=== PATIENT | male | born 1935 | race Caucasian/White ===

== ENCOUNTER 2017-01-19 10:23 | Observation (INO) | payer OTHER ==
[2017-01-19] MEDS ORDERED: BUPIVACAINE 0.5% 30 ML SDV ONE (10:26)
[2017-01-19] MEDS ORDERED: LIDOCAINE 1% 300 MG/30 ML SDV ONE (10:27)
[2017-01-19] MEDS ORDERED: LR 1,000 ML IV ONE (10:38)
[2017-01-19] MEDS ORDERED: LIDOCAINE 1% 5 ML SDV ID PRN (10:38)
[2017-01-19] MEDS ORDERED: ceFAZolin 2 GM/DEXTROSE 100 ML IV ONE (11:00)
[2017-01-19] MEDS ORDERED: fentaNYL 100 MCG/2 ML INJ ONE ×2 (11:25→11:26)
[2017-01-19] MEDS ORDERED: MIDAZOLAM 2 MG/2 ML VIAL ONE (11:38)
[2017-01-19] MEDS ORDERED: DEXAMETHASONE 4 MG/ML VIAL ONE (11:53)
[2017-01-19] MEDS ORDERED: ONDANSETRON 4 MG/2 ML VIAL ONE (11:53)
[2017-01-19] MEDS ORDERED: LIDOCAINE 2% 5 ML SDV ONE (11:54)
[2017-01-19] MEDS ORDERED: RANITIDINE 50 MG/2 ML VIAL ONE (11:54)
[2017-01-19] MEDS ORDERED: epHEDrine SULFATE 10 MG/ML SYR ONE (12:17)
[2017-01-19] MEDS ORDERED: KETOROLAC 30 MG/1 ML SDV ONE (12:38)
[2017-01-19] MEDS ORDERED: OXYCODONE/APAP 5/325 TAB PO PRN (13:37)
[2017-01-19] MEDS ORDERED: ONDANSETRON 4 MG/2 ML VIAL IVP PRN (13:37)
--- NOTE | 2017-01-19 13:47 | POSTOPPROG ---
Post Op Note Date of Operation: 01/19/17 Surgeon: Saman Wolfe (, FACS) Anesthesiologist: Mychal Anesthesia: LMA Pre-op Diagnosis: bilateral recurrent inguinal hernias Procedure: bilateral open inguinal hernia repair Findings: indirect left and direct right inguinal hernia Inf/Abcess present in the surg proc area at time of surgery?: No Complications: none
[2017-01-19] MEDS ORDERED: LR 1,000 ML IV SCH (14:00)
--- NOTE | 2017-01-19 15:05 | GOP ---
[f rep st] OPERATIVE REPORT DATE OF OPERATION: SURGEON: Saman Wolfe MD ANESTHESIA: Laryngeal mask anesthesia. ANESTHESIOLOGIST: Jeffy Horta D.O. PREOPERATIVE DIAGNOSIS: Bilateral recurrent inguinal hernias. POSTOPERATIVE DIAGNOSIS: Bilateral recurrent inguinal hernias. PROCEDURE PERFORMED: Open repair of bilateral recurrent inguinal hernias. FINDINGS: Left indirect inguinal hernia and direct right inguinal hernia, both previously repaired at the time of prostatectomy in 2001. ESTIMATED BLOOD LOSS: 10 cc. DESCRIPTION OF PROCEDURE: After informed consent was obtained, the patient was brought to the opera ting room and placed under general anesthesia. The lower abdomen was clipped, prepped, and draped i n the usual fashion. Before proceeding, a time-out and identification of the patient was performed. 0.25% Marcaine was used to infiltrate the abdominal wall, slightly medial and inferior to the anteri or superior iliac crest, at the level of the external oblique fascia. The planned incision site was infiltrated, and incised obliquely over the inguinal canal, and carried through the skin and subcut aneous tissues, Abbi fascia. The external oblique fascia was liberally infiltrated with 0.25% Mar davidson, and incised in the direction of its fibers through the external ring. The hernia on the left side was protruding through the internal ring, and the cord structures were mobilized from the ingu inal floor and encircled with a Chelsi drain. The hernia sac was dissected away from the cord stru ctures, and reduced into the preperitoneal space. The internal ring was reapproximated with interru pted 3-0 Vicryl sutures. Subsequently, the inguinal floor was reinforced with polypropylene mesh. U sing a standard Dougie technique. The mesh was cut to shape, secured medially at the pubic tu bercle, and interrupted sutures placed, securing it laterally to the internal ring. Here, it was sp lit in a keyhole fashion around the cord. It was attached to itself and the inguinal ligament with interrupted 0 Nurolon sutures. Sutures were placed laterally, as well, between the mesh and the ing uinal ligament. Medially and superiorly, the mesh was secured to the internal oblique fascia with i nterrupted 0 Nurolon sutures, taking care to avoid the ilioinguinal nerve and its branches cephalad. The tail of the mesh was tucked between the external oblique and internal oblique muscles. Cord s tructures were returned to their anatomic position. Upon completion, the repair was intact without undue tension. The external oblique fascia was closed over the external oblique with continuous run judah 3-0 Vicryl suture. Subcutaneous tissues were closed with 4-0 Vicryl suture, and the skin was c losed with 4-0 Monocryl suture in a subcuticular fashion. The right inguinal hernia was repaired through a mirror-image incision, after infiltrating the abdom inal wall with 0.25% Marcaine. The incision was made obliquely over the inguinal canal, and carried through the skin, subcutaneous tissues, Abbi fascia. External oblique fascia was infiltrated wit h 0.25% Marcaine, and opened in the direction of its fibers through the external ring sharply. Agai n, the cord structures were mobilized from the inguinal floor and encircled with Chelsi drain. The patient had an obvious direct inguinal hernia on the right side, and this was reduced into the prep eritoneal space, and the transversalis fascia repaired with interrupted 3-0 Vicryl sutures. There w as no indirect hernia sac on the right side. A Dougie repair was then performed on the right, with a polypropylene mesh cut to appropriate shape, sutured to the inguinal ligament starting at th e pubic tubercle medially, and extending to the internal ring laterally. Here, the mesh was again s plit longitudinally around the cord structures, secured to itself and the inguinal ligament with int errupted 0 Nurolon sutures. Medially and superiorly, the mesh was secured to the internal oblique f ascia with interrupted 0 Nurolon sutures. Laterally, the tail of the mesh was tucked between the ex ternal oblique and internal oblique muscles. Upon completion, the repair was intact without undue t ension. The cord structures were returned to their anatomic position, and the external oblique fasc ia was closed with continuous running 3-0 Vicryl suture. Subcutaneous tissues were closed with 4-0 Vicryl suture, and the skin closed with 4-0 Monocryl suture in subcuticular fashion. Mastisol and S arti-Strips were applied. Needle, sponge, and instrument count correct. COMPLICATIONS: None. Copy requested to: Elinor Bennett MD /[id number]/MODL
[2017-01-19 19:53] VITALS: RESP 14
[2017-01-20 05:26] VITALS: O2SAT 98
[2017-01-20 07:39] VITALS: BP 156/66; PULSE 47; TEMP 97.8
--- NOTE | 2017-01-20 08:49 | PDDCSUM ---
Discharge Summary Discharge Summary: Mr Norton was admitted for elective repair of bilateral recurrent inguinal hernias under GA. He had borderline control of his blood pressure pre-op and I admitted him for observation to monitor his BP post op. His BP the day before surgery was 220/100 and Amlodipine 5mg po q day was started by Cardiology (Oliver Moncada PA-C) in addition to his Losartan 100mg po q day. Following surgery his BP remained in the 130-150/70-80 range. He had mild discomfort and his surgical sites were uncomplicated other than a small amount of oozing from the skin incisions. He was continued on ASA 325mg/day, which was held for only 5 days preop. Plavix had been discontinued by Dr. Montgomery several weeks before. He was instructed in activity, wound care and diet. FU arranged in my office January 25. He has Rx for Percocet at home please see DC medication list for details of medications at discharge, they have been fully reconciled. Awilda Wolfe MD, FACS
[2017-01-20] MEDS ORDERED: ATORVASTATIN CALCIUM 40 MG TAB PO SCH (09:00)
[2017-01-20] MEDS ORDERED: LOSARTAN POTASSIUM 50 MG TAB PO SCH (09:00)
[2017-01-20] MEDS ORDERED: PANTOPRAZOLE SODIUM 40 MG TAB PO SCH (09:00)
[2017-01-20] MEDS ORDERED: amLODIPine BESYLATE 5 MG TAB PO SCH (09:00)
[2017-01-20] MEDS ORDERED: ASPIRIN 325 MG TAB PO SCH (09:00)
[2017-01-20] MEDS ORDERED: NON-FORMULARY NEW DRUG (Atorvastatin Calcium [Lipitor 80 Mg] 80 MG) PO SCH ×2 (09:00)
[2017-01-20] MEDS ORDERED: NON-FORMULARY NEW DRUG (Losartan Potassium [Cozaar] 100 MG) PO SCH (09:00)
[2017-01-20] MEDS ORDERED: NON-FORMULARY NEW DRUG (Lansoprazole [Prevacid] 15 MG) PO SCH (09:00)
== END 2017-01-20 09:10 | disposition home or self-care (01) ==
LOC: FSGY 10:23 → F3E 13:35
PROVIDERS: ADMIT Surgery; ATTEND Surgery
PROC: 0YUA0JZ Supplement Bilateral Inguinal Region with Synthetic Substitute, Open Approach (ICD-10-PCS; principal; 2017-01-19 11:45)
DX: K40.21 Bilateral inguinal hernia, without obstruction or gangrene, recurrent (principal); I10 Essential (primary) hypertension; R00.1 Bradycardia, unspecified; E78.5 Hyperlipidemia, unspecified; I25.10 Atherosclerotic heart disease of native coronary artery without angina pectoris; K44.9 Diaphragmatic hernia without obstruction or gangrene; Z79.82 Long term (current) use of aspirin; Z87.891 Personal history of nicotine dependence; Z87.442 Personal history of urinary calculi; Z85.46 Personal history of malignant neoplasm of prostate; Z82.49 Family history of ischemic heart disease and other diseases of the circulatory system
CPT/HCPCS: 49520; C1781; J0690; J1100; J1885; J2250; J2405; J2780; J3010

== ENCOUNTER → 2017-10-29 | Outpatient (CLI) | payer OTHER, MEDICARE | LOC: BMCIMAGING 16:50 | PROVIDERS: ATTEND Podiatrist Foot & Ankle Surgery | DX: S82.442A Displaced spiral fracture of shaft of left fibula, initial encounter for closed fracture (principal) ==

== ENCOUNTER 2017-11-07 08:13 | Day surgery (SDC) | payer OTHER, MEDICARE ==
[2017-11-07] MEDS ORDERED: LIDOCAINE 1% 2 ML INJ ID PRN (08:21)
[2017-11-07] MEDS ORDERED: LR 1,000 ML IV ONE (08:21)
--- NOTE | 2017-11-07 09:01 | PDANEPAE ---
ANE History of Present Illness left fibular fx ANE Past Medical History - Cardiovascular History Hx Hypertension: Yes Hx Arrhythmias: No Hx Chest Pain: No Hx Coronary Artery / Peripheral Vascular Disease: Yes Hx CHF / Valvular Disease: No Hx Palpitations: No Cardiovascular History Comment: BRADYCARDIA 40's-50's. STENTS X5 [id number] - Pulmonary History Hx COPD: No Hx Asthma/Reactive Airway Disease: No Hx Recent Upper Respiratory Infection: No Hx Oxygen in Use at Home: No Hx Sleep Apnea: No Sleep Apnea Screening Result - Last Documented: Positive - Neurologic History Hx Cerebrovascular Accident: No Hx Seizures: No Hx Dementia: No - Endocrine History Hx Diabetes: No Hypothyroid: No Hyperthyroid: No Obesity: no - Renal History Hx Renal Disorders: No - Liver History Hx Hepatic Disorders: No - Neurological & Psychiatric Hx Hx Neurological and Psychiatric Disorders: No - Cancer History Hx Cancer: Yes Cancer History Comment: prostate cancer - Congenital Disorder History Hx Congenital Disorders: No Congenital History Comment: PROSTATE 2001 - GI History GERD: moderate Hx Gastrointestinal Disorders: Yes Gastrointestinal History Comment: GERD - Other Health History Other Health History: none - Chronic Pain History Chronic Pain: No - Surgical History Prior Surgeries: hernia repair 01/27 ANE Review of Systems Review of systems is: negative Review of Systems: - Exercise capacity METS (RN): 5 METS ANE Patient History - Allergies Allergies/Adverse Reactions: TEMO Inhibitors Allergy (Verified 11/06/17 17:21) Other-Enter Comments - Home Medications Home medications: home medication list seen and reviewed Home Medications: Losartan Potassium [Cozaar] 01/19/17 [Last Taken 11/07/17 06:30] amLODIPine BESYLATE [Norvasc 5 mg (*)] 01/19/17 [Last Taken 11/07/17 06:30] Aspirin [Aspirin 325 mg (*)] 11/06/17 [Last Taken 10/31/17] Atorvastatin Calcium [Lipitor 40 mg (*)] 11/06/17 [Last Taken 11/07/17 06:30] Hydrochlorothiazide 11/06/17 [Last Taken 11/06/17] - NPO status NPO Since - Liquids (Date): 11/06/17 NPO Since - Liquids (Time): 22:00 NPO Since - Solids (Date): 11/06/17 NPO Since - Solids (Time): 20:00 - Anes Hx Anes Hx: no prior problems - Smoking Hx Smoking Status: Former smoker - Family Anes Hx Family Hx Anesthesia Complications: none ANE Labs/Vital Signs - Vital Signs Height: 170.18 cm Weight: 66.224 kg ANE Physical Exam - Airway Neck exam: FROM Mallampati Score: Class 1 Mouth exam: normal dental/mouth exam - Pulmonary Pulmonary: no respiratory distress - Cardiovascular Cardiovascular: regular rate and rhythym - ASA Status ASA Status: III ANE Anesthesia Plan Anesthesia Plan: GA w LMA Regional Anesthesia: single shot NB, popliteal SNB
[2017-11-07] MEDS ORDERED: PROPOFOL 200 MG/20 ML VIAL ONE (09:05)
[2017-11-07] MEDS ORDERED: fentaNYL 100 MCG/2 ML INJ ONE ×2 (09:05→12:37)
[2017-11-07] MEDS ORDERED: ceFAZolin 2 GM/SWFI 2 GM/20 ML SYR IVP ONE (09:07)
--- NOTE | 2017-11-07 09:09 | PDHPUP ---
History & Physical Update H&P update statement: This history and physical update is based on an assessment of the patient which was completed after admission or registration (within 24 hours), but prior to the surgery/procedure. H&P update: H&P reviewed & patient examined, no change in patient's condition since H&P completed
[2017-11-07] MEDS ORDERED: BUPIVACAINE 0.5% 30 ML SDV ONE ×2 (09:14→09:15)
[2017-11-07] MEDS ORDERED: ceFAZolin 1 GM/5 ML SYR ONE (09:14)
[2017-11-07] MEDS ORDERED: LIDOCAINE 2% 5 ML SDV ONE (09:14)
[2017-11-07] MEDS ORDERED: LIDO/EPI 2% **for epidural** 20 ML SDV ONE (10:03)
[2017-11-07] MEDS ORDERED: LIDO/EPI 1% **for epidural** 30 ML SDV ONE (10:04)
[2017-11-07] MEDS ORDERED: ONDANSETRON 4 MG/2 ML VIAL ONE (10:08)
[2017-11-07] MEDS ORDERED: DEXAMETHASONE 4 MG/ML VIAL ONE (10:08)
[2017-11-07] MEDS ORDERED: PROMETHAZINE HCL 25 MG/ML INJ IVP PRN (10:32)
[2017-11-07] MEDS ORDERED: NALOXONE HCL 0.4 MG/ML INJ IVP PRN (10:32)
[2017-11-07] MEDS ORDERED: ALBUTEROL 3 ML DEYVIAL IH PRN (10:32)
[2017-11-07] MEDS ORDERED: ONDANSETRON 4 MG/2 ML VIAL IVP PRN ×2 (10:32→12:09)
[2017-11-07] MEDS ORDERED: ACETAMINOPHEN 500 MG TAB PO PRN (10:32)
[2017-11-07] MEDS ORDERED: HYDROCODONE/APAP 5/325 TAB PO PRN (10:32)
[2017-11-07] MEDS ORDERED: LR 500 ML IV PRN (10:32)
[2017-11-07] MEDS ORDERED: HYDROmorphONE/DILAUDID 1 MG/ML INJ IVP PRN (10:32)
[2017-11-07] MEDS ORDERED: oxyCODONE IR 5 MG TAB PO PRN (10:32)
--- NOTE | 2017-11-07 10:32 | POSTANESTH ---
Post Anesthetic Evaluation Cardiovascular Status: Normal, Stable Respiratory Status: Normal, Stable Level of Consciousness/Mental Status: Can Participate in Eval Pain Control: Adequate, Prn Tx Ordered Nausea/Vomiting Control: Adequate, Prn Tx Ordered Complications Possibly Related to Anesthesia: None Noted
[2017-11-07] MEDS ORDERED: ONDANSETRON DISINTEGRATING 4 MG TAB PO PRN (12:09)
[2017-11-07] MEDS ORDERED: OXYCODONE/APAP 5/325 TAB PO PRN (12:09)
--- NOTE | 2017-11-07 12:16 | POSTOPPROG ---
Post Op Note Date of Operation: 11/07/17 Surgeon: Amarilis Avina Anesthesia: GET(General Endotracheal), Other (Specify) Pre-op Diagnosis: left fibula fracture, ankle OCD Post-op Diagnosis: left fibula fracture, ankle OCD Procedure: Left fibula fracture ORIF, Ankle arthroscopy with OCD Debridement/ microfx Inf/Abcess present in the surg proc area at time of surgery?: No Depth: Deep Incisional (Fascial) EBL: Minimal Complications: None
[2017-11-07] MEDS: fentaNYL 100 MCG/2 ML INJ IVP PRN ×3 (12:39→12:51)
--- NOTE | 2017-11-07 12:57 | GOP ---
[f rep st] OPERATIVE REPORT DATE OF OPERATION: 11/07/2017 SURGEON: Amarilis Avina DPM ANESTHESIA: General with endotracheal, popliteal block, and saphenous nerve block. PREOPERATIVE DIAGNOSIS: Left ankle fibula fracture, left talar dome osteochondral defect. POSTOPERATIVE DIAGNOSIS: Left ankle fibula fracture, left talar dome osteochondral defect. PROCEDURE PERFORMED: Left ankle fibular fracture open reduction/internal fixation. Ankle arthroscopy with osteochondral defect debridement and microfracture. FINDINGS: Osteochondral defect medial talar dome. ESTIMATED BLOOD LOSS: Minimal. DESCRIPTION OF PROCEDURE: Under mild sedation, the patient was brought in the operating room, placed on the operating table in supine position. The anesthesiologist performed a popliteal and saphenous nerve block. General anesthesia was then performed. A thigh tourniquet was placed about the patient' s left thigh. The leg was then placed into the leg anderson. The foot and leg were then scrubbed, prepped, and draped in the usual aseptic manner. The foot was then placed into the ankle distractor and ankle distracted. 10 mL of 1% lidocaine with epinephrine was then injected intra-articularly into the ankle joint. At this point, a stab incision was made over the anteromedial aspect of the ankle joint. The scope was then placed, and significant hemorrhagic tissue noted within the ankle joint. This was flushed out with the ankle scope. An anterolateral portal was made for egress, and the shaver was placed. The synovitis was debrided with a shaver. There was an osteochondral defect noted at the medial aspect of the talar dome. This was debrided and microfracture performed with the awl. The scope was then removed and the portals closed with 4 -0 Prolene. The ankle distractor was removed and the leg removed from the leg anderson. Attention was then directed to the lateral aspect of the fibula where an incision was made along the fracture site. The incision was deepened through subcutaneous tissue with care taken to identify and retract all vital neurovascular structures. All bleeders were cauterized as necessary. A periosteal incision was then performed. The fracture was then reduced using a bone reduction forceps. Attempt was made at placing the lag screw across the fracture site; however, there was comminution at this location and the area of the screw ended up fracturing. It was temporarily fixated with K-wires and the fibular plate placed laterally over the fracture site. This was fixated with locking and nonlocking screws. This held the fracture in a good position with nice reduction. Bone putty was placed about the fracture site. The wound was irrigated and incision closed with 3-0 Vicryl, 4-0 Monocryl, and 4-0 Prolene in horizontal suture technique. Xeroform, 4x4 gauze, Frank, cast padding, posterior splint, and Sonido wrap were applied. The patient was then transferred to the recovery room with vital signs stable and vascular status intact. Following a period of postoperative monitoring, he will be discharged home, advised to ice and elevate his foot. He is advised to keep the dressing clean, dry, and intact. He will follow up with me within the next week for wound check and dressing change. MATERIALS: Arthrex fibular fracture plate with locking and nonlocking screws. /[id number]/MODL MTDD
[2017-11-07 14:00] VITALS: BP 137/62
== END 2017-11-07 14:11 | disposition home or self-care (01) ==
LOC: FSGY 08:13
PROVIDERS: ATTEND Podiatrist Foot & Ankle Surgery
PROC: 0QBM4ZZ Excision of Left Tarsal, Percutaneous Endoscopic Approach (ICD-10-PCS; principal; 2017-11-07 09:30)
PROC: 0QSK04Z Reposition Left Fibula with Internal Fixation Device, Open Approach (ICD-10-PCS; principal; 2017-11-07 09:30)
DX: S82.442A Displaced spiral fracture of shaft of left fibula, initial encounter for closed fracture (principal); M95.8 Other specified acquired deformities of musculoskeletal system; S93.432A Sprain of tibiofibular ligament of left ankle, initial encounter; W00.9XXA Unspecified fall due to ice and snow, initial encounter; K21.0 Gastro-esophageal reflux disease with esophagitis; I10 Essential (primary) hypertension; Z85.46 Personal history of malignant neoplasm of prostate; Z95.5 Presence of coronary angioplasty implant and graft
CPT/HCPCS: C1713; C1762; J0690; J1100; J2405; J2704; J3010

== ENCOUNTER → 2017-12-13 | Outpatient (CLI) | payer OTHER, MEDICARE | LOC: BMCIMAGING 14:23 | PROVIDERS: ATTEND Podiatrist Foot & Ankle Surgery | DX: S82.832D Other fracture of upper and lower end of left fibula, subsequent encounter for closed fracture with routine healing (principal) ==

== ENCOUNTER → 2018-01-03 | Outpatient (CLI) | payer OTHER, MEDICARE | LOC: BMCIMAGING 14:07 | PROVIDERS: ATTEND Podiatrist Foot & Ankle Surgery | DX: S82.432D Displaced oblique fracture of shaft of left fibula, subsequent encounter for closed fracture with routine healing (principal) ==

== ENCOUNTER → 2018-01-29 | Outpatient (CLI) | payer OTHER, MEDICARE | LOC: BMCIMAGING 13:58 | PROVIDERS: ATTEND Podiatrist Foot & Ankle Surgery | DX: Z47.89 Encounter for other orthopedic aftercare (principal); S82.832D Other fracture of upper and lower end of left fibula, subsequent encounter for closed fracture with routine healing ==